=== PATIENT | male | born 1980 | race American Indian/Alaskan Native ===

== ENCOUNTER 2019-01-31 15:28 | Inpatient (IN) | payer OTHER ==
--- NOTE | 2019-01-31 15:36 | Emergency Department Report ---
Blank Doc - Documentation Documentation: This is a 38-year-old male that presents with swallowing glass particular. Elias flor stated was drinking and glass cut his tongue and started to have pain with swallowing. Denies any vomiting. This initial assessment/diagnostic orders/clinical plan/treatment(s) is/are subject to change based on patient's health status, clinical progression and re- assessment by fellow clinical providers in the ED. Further treatment and workup at subsequent clinical providers discretion. Patient/guardians urged not to elope from the ED as their condition may be serious if not clinically assessed and managed. Initial orders include: 1- Patient sent to MAIN for further evaluation and treatment 2- labs 3- Xray
[2019-01-31 16:01] LABS: Basophils # (Auto) 0.1 K/mm3 (0.0-0.1); Eosinophils # (Auto) 0.1 K/mm3 (0.0-0.4); Eosinophils % (Auto) 1.4 % (0.0-4.3); Hematocrit 41.9 % (35.5-45.6); Hemoglobin 14.2 gm/dl (11.8-15.2); Lymphocytes # (Auto) 2.3 K/mm3 (1.2-5.4); Lymphocytes % (Auto) 36.6 % (13.4-35.0); Mean Corpuscular HGB Conc 34 % (32-34); Mean Corpuscular Volume 83 fl (84-94); Monocytes # (Auto) 0.3 K/mm3 (0.0-0.8); Monocytes % (Auto) 5.3 % (0.0-7.3); Platelet Count 283 K/mm3 (140-440); Red Blood Count 5.04 M/mm3 (3.65-5.03); Red Cell Distribution Width 13.7 % (13.2-15.2)
[2019-01-31 16:11] LABS: BUN/Creatinine Ratio 10; Blood Urea Nitrogen 8 mg/dL (9-20); Hemolysis Index 21
--- NOTE | 2019-01-31 17:12 | Emergency Department Report ---
<BENITO IBRARA III - Last Filed: 02/01/19 00:27> ED General Adult HPI - General Chief complaint: Medical Clearance Stated complaint: SWALLOWED GLASS Time Seen by Provider: 01/31/19 15:34 - Related Data Home Medications Medication Instructions Recorded Confirmed Last Taken Ambien 10 mg PO HS 01/31/19 02/01/19 01/30/19 23:00 Effexor 150 mg PO DAILY 01/31/19 02/01/19 01/31/19 09:00 Insulin NPH Hum/Reg Insulin Hm 100 unit SQ PC 01/31/19 02/01/19 01/31/19 19:00 [Humulin 70-30 Vial] Keppra TAB 750 mg PO BID 01/31/19 02/01/19 01/31/19 09:00 Lamictal 100 mg PO BID 01/31/19 02/01/19 01/31/19 09:00 100 Lantus VIAL 15 units SQ 01/31/19 02/01/19 01/30/19 23:00 15 Allergies Allergy/AdvReac Type Severity Reaction Status Date / Time No Known Allergies Allergy Unverified 01/31/19 15:29 ED Past Medical Hx - Medications Home Medications: Home Medications Medication Instructions Recorded Confirmed Last Taken Type Ambien 10 mg PO HS 01/31/19 02/01/19 01/30/19 23:00 History Effexor 150 mg PO DAILY 01/31/19 02/01/19 01/31/19 09:00 History Insulin NPH Hum/Reg Insulin Hm 100 unit SQ PC 01/31/19 02/01/19 01/31/19 19:00 History [Humulin 70-30 Vial] Keppra TAB 750 mg PO BID 01/31/19 02/01/19 01/31/19 09:00 History Lamictal 100 mg PO BID 01/31/19 02/01/19 01/31/19 09:00 History 100 Lantus VIAL 15 units SQ 01/31/19 02/01/19 01/30/19 23:00 History 15 ED Course - Reevaluation(s) Reevaluation #1: Discussed all results with patient. Patient will be admitted to the hospitalist service. Patient agrees to plan of care. Hospitalist consultation for admission. Hospitalist to admit patient. Hospitalist to assume care patient. Patient having generalized abdominal tenderness. Patient is still complaining of pain in the abdomen and throat. 02/01/19 00:27 ED Medical Decision Making - Lab Data Result diagrams: 01/31/19 15:47 01/31/19 15:47 ED Disposition Clinical Impression: Throat pain Abdominal pain Qualifiers: Abdominal location: upper abdomen, unspecified Qualified Code(s): R10.10 - Upper abdominal pain, unspecified Ingestion of foreign body Qualifiers: Encounter type: initial encounter Qualified Code(s): T18.9XXA - Foreign body of alimentary tract, part unspecified, initial encounter Disposition: OP ADMIT IP TO THIS HOSP Condition: Stable <CIRA ARNDT - Last Filed: 02/01/19 02:45> ED General Adult HPI - General Source: patient Mode of arrival: Ambulatory Limitations: No Limitations - History of Present Illness Initial comments: Pt is a 38 yo male who presents to the ED with c/o pain in his throat that began today. He states he picked up a glass and did not notice it was broken at the top and he states the glass fell into his drink and he believes he swallowed it at 12 PM today. He states he cut his tongue in the process. The patient is able to tolerate his secretions and has drank water since then. He states initially he spit out some blood but has not seen any blood since then. PMHx of seizures, bladder injury with wire placement, and DM. he states he did not take his insulin today. ED Review of Systems ROS: Stated complaint: SWALLOWED GLASS Other details as noted in HPI Comment: All other systems reviewed and negative ED Past Medical Hx - Past Medical History Hx Diabetes: Yes Hx Seizures: Yes - Surgical History Additional Surgical History: jaw, bladder stimulator - Social History Smoking Status: Never Smoker Substance Use Type: None ED Physical Exam - General Limitations: No Limitations General appearance: alert, in no apparent distress - Head Head exam: Present: atraumatic, normocephalic - Eye Eye exam: Present: normal appearance, PERRL - ENT ENT exam: Present: normal orophraynx, mucous membranes moist, other (no signs of trauma to the posterior oropharynx or the tongue) - Respiratory Respiratory exam: Present: normal lung sounds bilaterally. Absent: respiratory distress, wheezes, rales, rhonchi, stridor, chest wall tenderness, accessory muscle use, decreased breath sounds, prolonged expiratory - Cardiovascular Cardiovascular Exam: Present: regular rate, normal rhythm, normal heart sounds. Absent: systolic murmur, diastolic murmur, rubs, gallop - GI/Abdominal GI/Abdominal exam: Present: soft, tenderness (mild epigastric), normal bowel sounds. Absent: distended, guarding, rebound, rigid - Neurological Exam Neurological exam: Present: alert, oriented X3 - Psychiatric Psychiatric exam: Present: normal affect, normal mood - Skin Skin exam: Present: warm, dry, intact ED Course Vital Signs 01/31/19 01/31/19 01/31/19 15:34 17:03 23:25 Temperature 98.0 F Pulse Rate 80 76 Respiratory 16 16 16 Rate Blood Pressure 138/93 O2 Sat by Pulse 98 99 Oximetry - Consultations Consultation #1: 01/31/19 20:[address] Ibarra who recommended ordering at CT abd pelvis and doctor chase fried consult GI. Consultation #2: 01/31/19 22:45 Spoke with Gautam Delong MD, radiologist who states that all glass is radiopaque and should be visualized if greater than 5 mm Consultation #3: 01/31/19 22:50 Dr. Ibarra spoke with Dr. Juancarlos Leone, GI who will consult on patient and will see patient in the AM. 01/31/19 22:56 Dr. Ibarra spoke with Dr. Sawyer who will accept and resume care of the patient and admit to observation. ED Medical Decision Making - Lab Data Result diagrams: 01/31/19 15:47 01/31/19 15:47 Lab Results 01/31/19 01/31/19 Range/Units 15:47 15:47 WBC 6.2 (4.5-11.0) K/mm3 RBC 5.04 H (3.65-5.03) M/mm3 Hgb 14.2 (11.8-15.2) gm/dl Hct 41.9 (35.5-45.6) % MCV 83 L (84-94) fl MCH 28 (28-32) pg MCHC 34 (32-34) % RDW 13.7 (13.2-15.2) % Plt Count 283 (140-440) K/mm3 Lymph % (Auto) 36.6 H (13.4-35.0) % Amador % (Auto) 5.3 (0.0-7.3) % Eos % (Auto) 1.4 (0.0-4.3) % Baso % (Auto) 1.0 (0.0-1.8) % Lymph # 2.3 (1.2-5.4) K/mm3 Amador # 0.3 (0.0-0.8) K/mm3 Eos # 0.1 (0.0-0.4) K/mm3 Baso # 0.1 (0.0-0.1) K/mm3 Seg Neutrophils % 55.7 (40.0-70.0) % Seg Neutrophils # 3.4 (1.8-7.7) K/mm3 Sodium 138 (137-145) mmol/L Potassium 4.0 (3.6-5.0) mmol/L Carbon Dioxide 24 (22-30) mmol/L BUN 8 L (9-20) mg/dL Creatinine 0.8 (0.8-1.5) mg/dL Estimated GFR > 60 ml/min BUN/Creatinine Ratio 10 % Glucose 316 H (75-100) mg/dL Calcium 9.0 (8.4-10.2) mg/dL - Radiology Data Radiology results: report reviewed PROCEDURE: XR ABD SERIES W CXR 1V HISTORY: sore throat r/o glass foreign body FINDINGS: Frontal view of the chest was acquired as well as supine and erect views of the abdomen. The heart is mildly large. There is no evidence of congestive heart failure. No foreign body is seen in the chest. In the abdomen, air is seen in nondistended loops of small bowel and large bowel. There is no bowel obstruction. Stool is seen throughout the colon without colonic dilation. The patient appears to be mildly constipated. No foreign body is seen. IMPRESSION: Cardiomegaly Mild constipation This document is electronically signed by Sony Hutton MD., Jan 31 2019 05:12:02 PM ET PROCEDURE: XR NECK SOFT TISSUE HISTORY: sore throat r/o glass foreign body FINDINGS: AP and lateral views of the neck soft tissues were acquired. On the lateral view there is a possible foreign body overlying the airway, between the epiglottis and larynx, 1.[address] is recommended. The prevertebral soft tissues are within normal limits. IMPRESSION: Possible foreign body. CT is recommended This document is electronically signed by Sony Hutton MD., Jan 31 2019 05:11:05 PM ET PROCEDURE: CT ABDOMEN PELVIS WO CON TECHNIQUE: Computerized axial tomography of the abdomen and pelvis was performed without intravenous contrast. This study is performed without intravascular contrast material and its sensitivity for abdominal and pelvic pathology, including neoplasms, inflammation, abscess, free fluid, thrombosis, arterial dissection and infarction, is reduced compared with a contrast enhanced study. CT DOSE LENGTH PRODUCT: 1218.6 mGycm HISTORY: concern for swallowed glass COMPARISONS: None . FINDINGS: There is diffuse fatty infiltration of liver. Spleen, pancreas and adrenal glands are within normal limits. Bilateral kidneys demonstrate normal density without calculi or hydronephrosis. Urinary bladder is partially filled with normal outlines. Aorta is of normal caliber. There is no free fluid or free air. Gallbladder is unremarkable. Small bowel loops are within normal limits. Moderate degree residual stool is noted. Appendix is normal. Vertebral height is normal. There is no evidence of any radiopaque foreign body. IMPRESSION: No acute intra-abdominal or pelvic pathology No radiopaque foreign body Fatty liver This document is electronically signed by Gautam Delong MD., Jan 31 2019 09:49:33 PM ET PROCEDURE: CT NECK WO CON TECHNIQUE: Computerized tomography of the soft tissue neck was performed without contrast material. This study is performed without intravascular contrast material and its sensitivity for pathology, including neoplasms, inflammation, abscess, free fluid, thrombosis, and arterial dissection, is reduced compared with a contrast enhanced study. CT DOSE LENGTH PRODUCT: 358.7 mGycm HISTORY: possible foreign body seen on XR of neck COMPARISONS: Radiograph 01/31/2019 . FINDINGS: Skull base: Visualized portions are normal . Paranasal sinuses: Visualized portions are normal . Nasopharynx: Normal . Oral cavity: Normal . Epiglottis/vallecula: Normal . Larynx/pyriform sinuses: Normal . Thyroid gland: Normal . Lymph nodes: None enlarged . Salivary glands: Normal . Upper thorax: Normal . IMPRESSION: No foreign body is identified. Density seen on radiograph is likely related to cartilage calcification This document is electronically signed by Kelly Malik MD., Jan 31 2019 08:26:13 PM ET - Medical Decision Making XR of the neck with possible foreign body. XR of the chest and abd with no acute process. CT of the neck with no acute process. CT of the abd/pelvis with no acute process. Spoke to radiologist who states that all glass is radioopaque and should be visualized unless under [address] case [address] Ibarra. Dr. Ibarra spoke with Dr. Juancarlos Leone, GI who will consult on patient, advised to admit, and will see patient in the morning. Dr. Sawyer, hospitalist will accept and resume care of pt and admit to the hospital. VSS. Labs with elevated glucose secondary to pt not taking his insulin, otherwise labs WNL. Critical care attestation.: If time is entered above; I have spent that time in minutes in the direct care of this critically ill patient, excluding procedure time. ED Disposition Is pt being admited?: Yes Does the pt Need Aspirin: No Time of Disposition: 22:56
[2019-01-31] MEDS ORDERED: MORPHINE IV ONE (19:57)
--- NOTE | 2019-01-31 20:28 | Cat Scan Report ---
PROCEDURE: CT NECK WO CON TECHNIQUE: Computerized tomography of the soft tissue neck was performed without contrast material. This study is performed without intravascular contrast material and its sensitivity for pathology, in cluding neoplasms, inflammation, abscess, free fluid, thrombosis, and arterial dissection, is reduced compared with a contrast enhanced study. CT DOSE LENGTH PRODUCT: 358.7 mGycm HISTORY: possible foreign body seen on XR of neck COMPARISONS: Radiograph 01/31/2019 . FINDINGS: Skull base: Visualized portions are normal . Paranasal sinuses: Visualized portions are normal . Nasopharynx: Normal . Oral cavity: Normal . Epiglottis/vallecula: Normal . Larynx/pyriform sinuses: Normal . Thyroid gland: Normal . Lymph nodes: None enlarged . Salivary glands: Normal . Upper thorax: Normal . IMPRESSION: No foreign body is identified. Density seen on radiograph is likely related to cartilage calcificatio n This document is electronically signed by Kelly Malik MD., Jan 31 2019 08:26:13 PM ET
--- NOTE | 2019-01-31 21:51 | Cat Scan Report ---
PROCEDURE: CT ABDOMEN PELVIS WO CON TECHNIQUE: Computerized axial tomography of the abdomen and pelvis was performed without intravenous contrast. This study is performed without intravascular contrast material and its sensitivity for ab dominal and pelvic pathology, including neoplasms, inflammation, abscess, free fluid, thrombosis, art erial dissection and infarction, is reduced compared with a contrast enhanced study. CT DOSE LENGTH PRODUCT: 1218.6 mGycm HISTORY: concern for swallowed glass COMPARISONS: None . FINDINGS: There is diffuse fatty infiltration of liver. Spleen, pancreas and adrenal glands are within normal l imits. Bilateral kidneys demonstrate normal density without calculi or hydronephrosis. Urinary bladde r is partially filled with normal outlines. Aorta is of normal caliber. There is no free fluid or joey e air. Gallbladder is unremarkable. Small bowel loops are within normal limits. Moderate degree resid ual stool is noted. Appendix is normal. Vertebral height is normal. There is no evidence of any radio paque foreign body. IMPRESSION: No acute intra-abdominal or pelvic pathology No radiopaque foreign body Fatty liver This document is electronically signed by Gautam Delong MD., Jan 31 2019 09:49:33 PM ET
[2019-01-31] MEDS ORDERED: TORADOL IV ONE (22:51)
[2019-01-31] MEDS ORDERED: TYLENOL PO PRN (23:25)
[2019-01-31] MEDS ORDERED: SODIUM CHLORIDE FLUSH SYRINGE 10 ML IV PRN (23:25)
[2019-01-31] MEDS ORDERED: MORPHINE IV PRN (23:25)
[2019-01-31] MEDS ORDERED: NACL 0.9% 1000 ML 1,000 ML IV SCH (23:45)
[2019-02-01] MEDS: ZOFRAN IV PRN ×2 (00:49→19:29)
[2019-02-01] MEDS ORDERED: MORPHINE ONE (00:51)
[2019-02-01] MEDS ORDERED: ZOFRAN ONE (00:52)
--- NOTE | 2019-02-01 01:12 | History and Physical Report ---
<KEELY STEELE - Last Filed: 02/01/19 01:21> History of Present Illness Date of examination: 01/31/19 Date of admission: 01/31/19 23:25 Chief complaint: Swallowed foreign body with complaints of neck and abdominal pain History of present illness: 38-year-old -M[place]ian male with history of seizure disorder, and dependent diabetes presents to [facility] ED with complaints of throat and abdominal pain after swallowing a foreign body. Patient states that he was drinking a glass of water and did not realize the glass was broken and the broken piece fell in water. Unknowingly he swallowed (what he believes to be ) a piece of glass, when drinking the water. He immediately began to experience sharp, stabbing throat pain followed by abdominal pain. He rates his pain 10/10. There are no aggravating factors and pain is relieved with pain medicine. He admits to spitting out blood tinged secretions. However he has not had any a dditional episodes of hemoptysis. Denies dramatic emesis, melena, nausea, vomiting, chest pain, or headache. Past History Past Medical History: diabetes, seizures, other Past Surgical History: Other (jaw surgery, sleep apnea surgery, bladder wires surgery) Social history: , lives with family Family history: no significant family history Medications and Allergies Allergies Allergy/AdvReac Type Severity Reaction Status Date / Time No Known Allergies Allergy Unverified 01/31/19 15:29 Home Medications Medication Instructions Recorded Confirmed Last Taken Type Ambien 10 mg PO HS 01/31/19 02/01/19 01/30/19 23:00 History Effexor 150 mg PO DAILY 01/31/19 02/01/19 01/31/19 09:00 History Insulin NPH Hum/Reg Insulin Hm 100 unit SQ PC 01/31/19 02/01/19 01/31/19 19:00 History [Humulin 70-30 Vial] Keppra TAB 750 mg PO BID 01/31/19 02/01/19 01/31/19 09:00 History Lamictal 100 mg PO BID 01/31/19 02/01/19 01/31/19 09:00 History 100 Lantus VIAL 15 units SQ HS 01/31/19 02/01/19 01/30/19 23:00 History 15 Active Meds: Active Medications Acetaminophen (Tylenol) 650 mg PO Q4H PRN PRN Reason: Pain MILD(1-3)/Fever >100.5/NICOLE Sodium Chloride (Nacl 0.9% 1000 Ml) 1,000 mls @ 100 mls/hr IV DIRECT BENY Morphine Sulfate (Morphine) 2 mg IV Q4H PRN PRN Reason: Pain, Moderate (4-6) Stop: 02/01/19 23:59 Last Admin: 02/01/19 00:49 Dose: 2 mg Documented by: Ondansetron HCl (Zofran) 4 mg IV Q8H PRN PRN Reason: Nausea And Vomiting Last Admin: 02/01/19 00:49 Dose: 4 mg Documented by: Sodium Chloride (Sodium Chloride Flush Syringe 10 Ml) 10 ml IV BID BENY Sodium Chloride (Sodium Chloride Flush Syringe 10 Ml) 10 ml IV PRN PRN PRN Reason: LINE FLUSH Review of Systems All systems: negative (reviewed and no additional remarkable complaints except as noted below) Ears, nose, mouth and throat: sore throat (throat pain) Respiratory: hemoptysis (1) Gastrointestinal: abdominal pain ( mild epigastric tenderness) Exam - Physical Exam Narrative exam: Physical exam General appearance: Present: No acute distress, well-nourished adult male - EENT Eyes: Present: PERRL, EOM intact ENT: hearing intact, normal dentition - Neck Neck: Present: supple, normal ROM - Respiratory Respiratory effort: Non-labored Respiratory: Clear throughout - Cardiovascular Heart rate: 76 (bpm) Rhythm: Sinus rhythm, regular Heart Sounds: Present: S1 & S2. Absent: rub, click - Extremities Extremities: no ischemia, pulses intact, - Peripheral Assessment Peripheral Pulses: within normal limits - Abdominal General gastrointestinal: soft, mild epicgastric tenderness, normal bowel sounds - Integumentary Integumentary: Present: warm, dry - Musculoskeletal Musculoskeletal: Able to move all extremities - Psychiatric Psychiatric: Appropriate for situation, cooperative - Constitutional Vitals: Temp Pulse Resp BP Pulse Ox 98.0 F 76 16 138/93 99 01/31/19 15:34 01/31/19 23:25 01/31/19 23:25 01/31/19 15:34 01/31/19 23:25 Results - Labs CBC & Chem 7: 01/31/19 15:47 01/31/19 15:47 Labs: Laboratory Last Values WBC 6.2 K/mm3 (4.5-11.0) 01/31/19 15:47 RBC 5.04 M/mm3 (3.65-5.03) H 01/31/19 15:47 Hgb 14.2 gm/dl (11.8-15.2) 01/31/19 15:47 Hct 41.9 % (35.5-45.6) 01/31/19 15:47 MCV 83 fl (84-94) L 01/31/19 15:47 MCH 28 pg (28-32) 01/31/19 15:47 MCHC 34 % (32-34) 01/31/19 15:47 RDW 13.7 % (13.2-15.2) 01/31/19 15:47 Plt Count 283 K/mm3 (140-440) 01/31/19 15:47 Lymph % (Auto) 36.6 % (13.4-35.0) H 01/31/19 15:47 [place] % (Auto) 5.3 % (0.0-7.3) 01/31/19 15:47 Eos % (Auto) 1.4 % (0.0-4.3) 01/31/19 15:47 Baso % (Auto) 1.0 % (0.0-1.8) 01/31/19 15:47 Lymph # 2.3 K/mm3 (1.2-5.4) 01/31/19 15:47 [place] # 0.3 K/mm3 (0.0-0.8) 01/31/19 15:47 Eos # 0.1 K/mm3 (0.0-0.4) 01/31/19 15:47 Baso # 0.1 K/mm3 (0.0-0.1) 01/31/19 15:47 Seg Neutrophils % 55.7 % (40.0-70.0) 01/31/19 15:47 Seg Neutrophils # 3.4 K/mm3 (1.8-7.7) 01/31/19 15:47 Sodium 138 mmol/L (137-145) 01/31/19 15:47 Potassium 4.0 mmol/L (3.6-5.0) 01/31/19 15:47 Carbon Dioxide 24 mmol/L (22-30) 01/31/19 15:47 BUN 8 mg/dL (9-20) L 01/31/19 15:47 0.8 mg/dL (0.8-1.5) 01/31/19 15:47 Estimated GFR > 60 ml/min 01/31/19 15:47 10 % 01/31/19 15:47 Glucose 316 mg/dL (75-100) H 01/31/19 15:47 Calcium 9.0 mg/dL (8.4-10.2) 01/31/19 15:47 Short CBC 01/31/19 Range/Units 15:47 WBC 6.2 (4.5-11.0) K/mm3 Hgb 14.2 (11.8-15.2) gm/dl Hct 41.9 (35.5-45.6) % Plt Count 283 (140-440) K/mm3 BMP 01/31/19 15:47 Sodium 138 Potassium 4.0 Carbon Dioxide 24 BUN 8 L Creatinine 0.8 Glucose 316 H Calcium 9.0 - Imaging and Cardiology Chest x-ray: report reviewed (No foreign body is seen. ), image reviewed Abdominal x-ray: report reviewed, image reviewed (No foreign body is seen. ) CT scan - abdomen: report reviewed (No acute intra-abdominal or pelvic pathology. No radiopaque foreign body. Fatty liver ), image reviewed Imaging and Cardiology: XR Neck: On the lateral view there is a possible foreign body overlying the airway, between the epiglottis and larynx, 1.[address] Neck: No foreign body is identified. Density seen on radiograph is likely related to cartilage calcification Assessment and Plan Assessment and plan: 38-year-old -Mauritanian male with history of seizure disorder, and dependent diabetes presents to [facility] ED with complaints of throat and abdominal pain after swallowing a foreign body. No foreign body seen on CT abdomen and pelvis, CT neck, chest x-ray, or abdominal x-ray. Patient continues to complain of severe abdominal and neck pain. H/H WNL no s/s of active bleeding. Dr. Leone was consulted and plans on seeing patient in the morning for further evaluation. Will admitted as OBS to Medical floor. Foreign body consumption Acute abdominal and neck pain IDDM History of seizures Plan: Continue Supportive care Pain management Monitor H/H Monitor for s/s of active bleeding Nothing by mouth IVF POC BG monitoring SSI coverage Resume anticonvulsant medications: Keppra and Lamictal DVT PPX on SCD's will hold off of AC for now Advance Directives: No VTE prophylaxis?: Mechanical Plan of care discussed with patient/family: Yes <KERALOCO Meri - Last Filed: 02/02/19 07:11> History of Present Illness Date of admission: 02/01/19 16:38 Medications and Allergies Active Meds: Active Medications Acetaminophen (Tylenol) 650 mg PO Q4H PRN PRN Reason: Pain MILD(1-3)/Fever >100.5/NICOLE Dextrose (D50w (25gm) Syringe) 50 ml IV PRN PRN PRN Reason: Hypoglycemia Insulin Glargine (Lantus) 15 units SUB-Q QHS [facility] Last Admin: 02/01/19 22:59 Dose: 15 units Documented by: Insulin Human Lispro (Humalog) 0 unit SUB-Q Q6HR [facility]; Protocol Last Admin: 02/02/19 06:48 Dose: 3 unit Documented by: Lamotrigine (Lamictal) 100 mg PO BID [facility] Last Admin: 02/01/19 21:33 Dose: 100 mg Documented by: Levetiracetam (Keppra) 750 mg PO BID [facility] Last Admin: 02/01/19 21:32 Dose: 750 mg Documented by: Ondansetron HCl (Zofran) 4 mg IV Q8H PRN PRN Reason: Nausea And Vomiting Last Admin: 02/01/19 19:29 Dose: 4 mg Documented by: Oxycodone/Acetaminophen (Percocet 5/325) 1 tab PO Q6H PRN PRN Reason: Pain, Moderate (4-6) Last Admin: 02/02/19 04:49 Dose: 1 tab Documented by: Sodium Chloride (Sodium Chloride Flush Syringe 10 Ml) 10 ml IV BID [facility] Last Admin: 02/01/19 21:34 Dose: 10 ml Documented by: Sodium Chloride (Sodium Chloride Flush Syringe 10 Ml) 10 ml IV PRN PRN PRN Reason: LINE FLUSH Venlafaxine HCl (Effexor Xr) 150 mg PO DAILY [facility] Last Admin: 02/01/19 10:34 Dose: 150 mg Documented by: Exam - Constitutional Vitals: Temp Pulse Resp BP Pulse Ox 98.2 F 69 18 126/78 98 02/02/19 06:14 02/02/19 06:14 02/02/19 06:14 02/02/19 06:14 02/02/19 06:14 Results - Labs CBC & Chem 7: 02/01/19 14:44 02/01/19 05:46 Labs: Laboratory Last Values WBC 6.3 K/mm3 (4.5-11.0) 02/01/19 05:46 RBC 4.81 M/mm3 (3.65-5.03) 02/01/19 05:46 Hgb 13.9 gm/dl (11.8-15.2) 02/01/19 14:44 Hct 42.4 % (35.5-45.6) 02/01/19 14:44 MCV 84 fl (84-94) 02/01/19 05:46 MCH 29 pg (28-32) 02/01/19 05:46 MCHC 34 % (32-34) 02/01/19 05:46 RDW 13.5 % (13.2-15.2) 02/01/19 05:46 Plt Count 285 K/mm3 (140-440) 02/01/19 05:46 Lymph % (Auto) 42.9 % (13.4-35.0) H 02/01/19 05:46 [place] % (Auto) 5.9 % (0.0-7.3) 02/01/19 05:46 Eos % (Auto) 1.6 % (0.0-4.3) 02/01/19 05:46 Baso % (Auto) 0.6 % (0.0-1.8) 02/01/19 05:46 Lymph # 2.7 K/mm3 (1.2-5.4) 02/01/19 05:46 [place] # 0.4 K/mm3 (0.0-0.8) 02/01/19 05:46 Eos # 0.1 K/mm3 (0.0-0.4) 02/01/19 05:46 Baso # 0.0 K/mm3 (0.0-0.1) 02/01/19 05:46 Seg Neutrophils % 49.0 % (40.0-70.0) 02/01/19 05:46 Seg Neutrophils # 3.1 K/mm3 (1.8-7.7) 02/01/19 05:46 Sodium 140 mmol/L (137-145) 02/01/19 05:46 Potassium 3.9 mmol/L (3.6-5.0) 02/01/19 05:46 Chloride 101.1 mmol/L (98-107) 02/01/19 05:46 Carbon Dioxide 29 mmol/L (22-30) 02/01/19 05:46 14 mmol/L 02/01/19 05:46 BUN 11 mg/dL (9-20) 02/01/19 05:46 0.7 mg/dL (0.8-1.5) L 02/01/19 05:46 Estimated GFR > 60 ml/min 02/01/19 05:46 16 % 02/01/19 05:46 Glucose 241 mg/dL (75-100) H 02/01/19 05:46 POC Glucose 219 (70-105) H 02/02/19 06:22 11.2 % (4-6) H 02/01/19 01:56 Calcium 8.6 mg/dL (8.4-10.2) 02/01/19 05:46 Assessment and Plan Assessment and plan: I personally discussed the patient with the FUNERAL DIRECTOR AND EMBALMER-C. I agree with the above assessment and plan
[2019-02-01] MEDS ORDERED: D50W (25GM) Syringe IV PRN (01:16)
[2019-02-01] MEDS: KEPPRA PO SCH ×3 (02:06→21:32)
[2019-02-01] MEDS: LaMICtal PO SCH ×3 (02:07→21:33)
[2019-02-01] MEDS: DILAUDID IV PRN ×6 (03:43→23:37)
[2019-02-01 06:16] LABS: Basophils % (Auto) 0.6 % (0.0-1.8); Eosinophils # (Auto) 0.1 K/mm3 (0.0-0.4); Eosinophils % (Auto) 1.6 % (0.0-4.3); Hemoglobin 13.8 gm/dl (11.8-15.2); Lymphocytes # (Auto) 2.7 K/mm3 (1.2-5.4); Lymphocytes % (Auto) 42.9 % (13.4-35.0); Monocytes # (Auto) 0.4 K/mm3 (0.0-0.8); Monocytes % (Auto) 5.9 % (0.0-7.3)
[2019-02-01 06:21] LABS: Hematocrit 40.4 % (35.5-45.6); Mean Corpuscular HGB Conc 34 % (32-34); Mean Corpuscular Volume 84 fl (84-94); Platelet Count 285 K/mm3 (140-440); Red Blood Count 4.81 M/mm3 (3.65-5.03); Red Cell Distribution Width 13.5 % (13.2-15.2)
[2019-02-01] MEDS: HumaLOG SUB-Q SCH ×3 (06:23→17:46)
[2019-02-01 06:27] LABS: BUN/Creatinine Ratio 16; Blood Urea Nitrogen 11 mg/dL (9-20); Calcium 8.6 mg/dL (8.4-10.2); Hemolysis Index 6
[2019-02-01] MEDS ORDERED: LANTUS SUB-Q ONE (09:00)
[2019-02-01] MEDS: EFFEXOR XR PO SCH (10:34)
[2019-02-01] MEDS: SODIUM CHLORIDE FLUSH SYRINGE 10 ML IV SCH ×2 (10:35→21:34)
--- NOTE | 2019-02-01 14:40 | Progress Note ---
Assessment and Plan Assessment and plan: Foreign body ingestion - CT revealed no foreign body Acute abdominal and neck pain - resolved IDDM - SSI and basal insulin, Accu-Chek, ADA diet adjust insulin as needed History of seizures - continue home medications Rectal bleed - GI was consulted and if no further GI bleed they recommend to DC - H/H stable DVT prophylaxis - SCDs Disposition; continue inpatient care. If stable Dc tomorrow. History Interval history: Patient was seen and evaluated at the bedside, patient was complaining of an episode of rectal bleeding. Hospitalist Physical - Physical exam Narrative exam: Not in cardiopulmonary distress. The patient appeared well nourished and normally developed. Vital signs as documented. Head exam is unremarkable. No scleral icterus . Neck is without jugular venous distension, thyromegaly, or carotid bruits. Lungs are clear to auscultation. Cardiac exam reveals regular rate and Rhythm. First and second heart sounds normal. No murmurs, rubs or gallops. Abdominal exam reveals normal bowel sounds, no masses, no organomegaly and no aortic enlargement. Extremities are nonedematous and both femoral and pedal pulses are normal. 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 No focal weakness. - Constitutional Vitals: Temp Pulse Resp BP Pulse Ox 98.7 F 74 20 121/78 97 02/01/19 11:23 02/01/19 11:23 02/01/19 11:23 02/01/19 11:23 02/01/19 11:23 Results - Labs CBC & Chem 7: 02/02/19 07:16 02/02/19 07:16 Labs: Laboratory Last Values WBC 6.3 K/mm3 (4.5-11.0) 02/01/19 05:46 RBC 4.81 M/mm3 (3.65-5.03) 02/01/19 05:46 Hgb 13.8 gm/dl (11.8-15.2) 02/01/19 05:46 Hct 40.4 % (35.5-45.6) 02/01/19 05:46 MCV 84 fl (84-94) 02/01/19 05:46 MCH 29 pg (28-32) 02/01/19 05:46 MCHC 34 % (32-34) 02/01/19 05:46 RDW 13.5 % (13.2-15.2) 02/01/19 05:46 Plt Count 285 K/mm3 (140-440) 02/01/19 05:46 Lymph % (Auto) 42.9 % (13.4-35.0) H 02/01/19 05:46 [place] % (Auto) 5.9 % (0.0-7.3) 02/01/19 05:46 Eos % (Auto) 1.6 % (0.0-4.3) 02/01/19 05:46 Baso % (Auto) 0.6 % (0.0-1.8) 02/01/19 05:46 Lymph # 2.7 K/mm3 (1.2-5.4) 02/01/19 05:46 [place] # 0.4 K/mm3 (0.0-0.8) 02/01/19 05:46 Eos # 0.1 K/mm3 (0.0-0.4) 02/01/19 05:46 Baso # 0.0 K/mm3 (0.0-0.1) 02/01/19 05:46 Seg Neutrophils % 49.0 % (40.0-70.0) 02/01/19 05:46 Seg Neutrophils # 3.1 K/mm3 (1.8-7.7) 02/01/19 05:46 Sodium 140 mmol/L (137-145) 02/01/19 05:46 Potassium 3.9 mmol/L (3.6-5.0) 02/01/19 05:46 Chloride 101.1 mmol/L (98-107) 02/01/19 05:46 Carbon Dioxide 29 mmol/L (22-30) 02/01/19 05:46 14 mmol/L 02/01/19 05:46 BUN 11 mg/dL (9-20) 02/01/19 05:46 0.7 mg/dL (0.8-1.5) L 02/01/19 05:46 Estimated GFR > 60 ml/min 02/01/19 05:46 16 % 02/01/19 05:46 Glucose 241 mg/dL (75-100) H 02/01/19 05:46 POC Glucose 246 (70-105) H 02/01/19 11:12 11.2 % (4-6) H 02/01/19 01:56 Calcium 8.6 mg/dL (8.4-10.2) 02/01/19 05:46 Active Medications - Current Medications Current Medications: Generic Name Dose Route Start Last Admin Trade Name Freq PRN Reason Stop Dose Admin Acetaminophen 650 mg 01/31/19 23:25 Tylenol PO Q4H PRN Pain MILD(1-3)/Fever >100.5/NICOLE Dextrose 50 ml 02/01/19 01:16 D50w (25gm) Syringe IV PRN PRN Hypoglycemia Hydromorphone HCl 0.5 mg 02/01/19 01:37 02/01/19 12:44 Dilaudid IV 02/01/19 23:59 0.5 mg Q3H PRN Administration Pain , Severe (7-10) Insulin Glargine 15 units 02/01/19 22:00 Lantus SUB-Q QHS BENY Insulin Human Lispro 0 unit 02/01/19 06:00 02/01/19 11:30 Humalog SUB-Q 3 unit Q6HR BENY Administration Protocol Lamotrigine 100 mg 02/01/19 01:15 02/01/19 10:34 Lamictal PO 100 mg BID BENY Administration Levetiracetam 750 mg 02/01/19 01:15 02/01/19 10:34 Keppra PO 750 mg BID BENY Administration Morphine Sulfate 2 mg 01/31/19 23:25 02/01/19 00:49 Morphine IV 02/01/19 23:59 2 mg Q4H PRN Administration Pain, Moderate (4-6) Ondansetron HCl 4 mg 01/31/19 23:25 02/01/19 00:49 Zofran IV 4 mg Q8H PRN Administration Nausea And Vomiting Sodium Chloride 10 ml 02/01/19 10:00 02/01/19 10:35 Sodium Chloride Flush Syringe 10 Ml IV 10 ml BID BENY Administration Sodium Chloride 10 ml 01/31/19 23:25 Sodium Chloride Flush Syringe 10 Ml IV PRN PRN LINE FLUSH Venlafaxine HCl 150 mg 02/01/19 10:00 02/01/19 10:34 Effexor Xr PO 150 mg DAILY BENY Administration
[2019-02-01 15:10] LABS: Hematocrit 42.4 % (35.5-45.6); Hemoglobin 13.9 gm/dl (11.8-15.2)
[2019-02-01] MEDS ORDERED: LANTUS SUB-Q SCH (22:00)
[2019-02-02] MEDS: HumaLOG SUB-Q SCH ×2 (01:59→06:48)
[2019-02-02] MEDS: PERCOCET 5/325 PO PRN ×2 (04:49→10:11)
--- NOTE | 2019-02-02 05:34 | Consultation ---
REFERRING PHYSICIAN: Khadar Sharp MD INDICATION: 1. Abdominal pain. 2. Rectal bleeding. 3. Foreign body. HISTORY OF PRESENT ILLNESS: The patient is a 38-year-old black male with history of diabetes, presents for throat and abdominal pain. The patient reports that he was drinking a glass of water and felt that he inadvertently swallowed a piece of broken glass. The patient reports it was at that time, he has had some problems with swallowing, epigastric pain and also then started to develop some upper mid abdominal pain. The patient denied any lower GI symptoms at that time including diarrhea, constipation or rectal bleeding. Denies any nausea or vomiting. The patient subsequently came to the Emergency Room where he had a CT scan and a KUB performed, which were negative for foreign body, but the patient was admitted for observation. During the day and overnight, the patient reports he had a single bout of bloody blood per rectum, which made him concerned. Denies any history of rectal bleeding in the past. Denies any weight loss. No other specific complaints. PAST MEDICAL HISTORY: 1. Diabetes. 2. Seizure disorder. PAST SURGICAL HISTORY: Jaw surgery, bladder surgery. ALLERGIES: No known drug allergies. HOME MEDICATIONS: Reviewed and updated in chart. SOCIAL HISTORY: Denies alcohol, tobacco or drug abuse. FAMILY HISTORY: Negative for colon cancer or liver disease. REVIEW OF SYSTEMS: GENERAL: Reports mild weakness. HEENT: No visual complaints or tinnitus. PULMONARY: No shortness of breath. No cough. No chest pain. GASTROINTESTINAL: Reports mild abdominal pain. All points of 13-point review of systems otherwise negative. PHYSICAL EXAMINATION: VITAL SIGNS: Temperature of 98.7, pulse 74, respirations 20, blood pressure 121/78. GENERAL: Fairly nourished black male in no acute distress. HEENT: Pupils are equal, round, reactive. PULMONARY: Clear to auscultation bilaterally. CARDIOVASCULAR: Regular rhythm. Normal S1, S2. ABDOMEN: Soft. SKIN: No obvious rashes. LABORATORY DATA: Pertinent for white count of 6.3, hemoglobin and hematocrit of 13.8 and 40.4, platelet count of 285. Chem-7 within normal limits. LFTs within normal limits. KUB negative for foreign body. CT scan of the abdomen and pelvis with contrast negative for foreign body. ASSESSMENT AND PLAN: A 38-year-old male who presents after feeling he swallowed a piece of glass with negative KUB and CT. The patient does report overnight having some upper epigastric pain and then later in the evening some bright red blood per rectum, which he says he never had before. The patient's concern would rather be evaluated a little further. Management is noted below. PLAN: 1. We will start clear liquid diet, advance to soft as tolerated. 2. Follow labs. 3. If repeat rectal bleeding, we would then proceed with colonoscopy and possible endoscopy. 4. If stable in a.m. and no problems, okay to discharge from GI standpoint. JOB# [id number] [facility]
[2019-02-02 06:21] VITALS: BP 126/78
[2019-02-02 07:38] LABS: Basophils % (Auto) 0.8 % (0.0-1.8); Eosinophils # (Auto) 0.1 K/mm3 (0.0-0.4); Eosinophils % (Auto) 2.6 % (0.0-4.3); Hematocrit 42.5 % (35.5-45.6); Hemoglobin 13.9 gm/dl (11.8-15.2); Lymphocytes # (Auto) 1.6 K/mm3 (1.2-5.4); Lymphocytes % (Auto) 33.4 % (13.4-35.0); Mean Corpuscular HGB Conc 33 % (32-34); Mean Corpuscular Volume 84 fl (84-94); Monocytes # (Auto) 0.3 K/mm3 (0.0-0.8); Monocytes % (Auto) 7.1 % (0.0-7.3); Platelet Count 279 K/mm3 (140-440); Red Blood Count 5.04 M/mm3 (3.65-5.03); Red Cell Distribution Width 13.7 % (13.2-15.2)
[2019-02-02 08:04] LABS: BUN/Creatinine Ratio 14; Blood Urea Nitrogen 11 mg/dL (9-20); Calcium 8.7 mg/dL (8.4-10.2); Hemolysis Index 6
--- NOTE | 2019-02-02 08:46 | Discharge Summary ---
Providers - Providers Date of Admission: 02/01/19 16:38 Attending physician: GRACY LOPEZ MD 01/31/19 22:52 Consult to Physician [CONS] Routine Comment: Dr. Carrizales spoke with Dr. Tavarez @ 2054 Consulting Provider: ELISSA TAVAREZ Physician Instructions: Reason For Exam: poss swallowed glas, throat pain. abd pain Hospitalization Reason for admission: Suspected foreihn body ingestion Condition: Stable Hospital course: 38-year-old -Japanese male with history of seizure disorder, and dependent diabetes presents to [facility] ED with complaints of throat and abdominal pain after swallowing a foreign body. Patient states that he was drinking a glass of water and did not realize the glass was broken and the broken piece fell in water. Unknowingly he swallowed (what he believes to be ) a piece of glass, when drinking the water. He immediately began to experience sharp, stabbing throat pain followed by abdominal pain. He rates his pain 10/10. There are no aggravating factors and pain is relieved with pain medicine. He admits to spitting out blood tinged secretions. However he has not had any additional episodes of hemoptysis. patient was admitted and CT of the neck and abdomen was done and didn't reveal foreign body. Patient was complaining an episode of rectal bleeding and GI evaluated the patient and cleared for discharge. patient didn't have any other episode of GI bleed. H/H was stable. Abdominal pain subsided and discharged home. Disposition: - TO HOME OR SELFCARE Time spent for discharge: 32 minutes - Discharge Diagnoses (1) Abdominal pain Status: Acute Qualifiers: Abdominal location: upper abdomen, unspecified Qualified Code(s): R10.10 - Upper abdominal pain, unspecified (2) Ingestion of foreign body Status: Acute Qualifiers: Encounter type: initial encounter Qualified Code(s): T18.9XXA - Foreign body of alimentary tract, part unspecified, initial encounter (3) Throat pain Status: Acute Core Measure Documentation - Palliative Care Palliative Care/ Comfort Measures: Not Applicable - Core Measures Any of the following diagnoses?: none Exam - Physical Exam Narrative exam: Not in cardiopulmonary distress. The patient appeared well nourished and normally developed. Vital signs as documented. Head exam is unremarkable. No scleral icterus . Neck is without jugular venous distension, thyromegaly, or carotid bruits. Lungs are clear to auscultation. Cardiac exam reveals regular rate and Rhythm. First and second heart sounds normal. No murmurs, rubs or gallops. Abdominal exam reveals normal bowel sounds, no masses, no organomegaly and no aortic enlargement. Extremities are nonedematous and both femoral and pedal pulses are normal. 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 No focal weakness. - Constitutional Vitals: Temp Pulse Resp BP Pulse Ox 98.2 F 69 18 126/78 98 02/02/19 06:14 02/02/19 06:14 02/02/19 06:14 02/02/19 06:14 02/02/19 06:14 Plan Activity: no restrictions Weight Bearing Status: Full Weight Bearing Diet: regular Follow up with: [facility] [Other] - 3-5 Days
[2019-02-02] MEDS: KEPPRA PO SCH (10:10)
[2019-02-02] MEDS: EFFEXOR XR PO SCH (10:12)
[2019-02-02] MEDS: SODIUM CHLORIDE FLUSH SYRINGE 10 ML IV SCH (10:13)
[2019-02-02] MEDS: LaMICtal PO SCH (10:13)
--- NOTE | 2019-02-02 18:00 | Gastroenterology Progress Note ---
Assessment and Plan GI: no problems overnight - diet as tolerated - ok to d/c - will sign off, call if needed Subjective Date of service: 02/02/19 Interval history: - no complaints overnight Objective - Constitutional Vitals: Temp Pulse Resp BP Pulse Ox 98.2 F 69 18 126/78 98 02/02/19 06:14 02/02/19 06:14 02/02/19 06:14 02/02/19 06:14 02/02/19 06:14 General appearance: no acute distress - EENT Eyes: PERRL - Respiratory Respiratory: bilateral: CTA - Cardiovascular Rhythm: regular Heart Sounds: Present: S1 & S2 - Gastrointestinal General gastrointestinal: Present: soft, non-tender, non-distended - Labs CBC & Chem 7: 02/02/19 07:16 02/02/19 07:16 Labs: Laboratory Results - last 24 hr 02/01/19 02/02/19 02/02/19 17:47 01:32 06:22 WBC RBC Hgb Hct MCV MCH MCHC RDW Plt Count Lymph % (Auto) [place] % (Auto) Eos % (Auto) Baso % (Auto) Lymph # Kerr # Eos # Baso # Seg Neutrophils % Seg Neutrophils # Sodium Potassium Chloride Carbon Dioxide Anion Gap BUN Creatinine Estimated GFR BUN/Creatinine Ratio Glucose POC Glucose 122 H 221 H 219 H Calcium 02/02/19 02/02/19 02/02/19 07:16 07:16 07:55 WBC 4.8 RBC 5.04 H Hgb 13.9 Hct 42.5 MCV 84 MCH 28 MCHC 33 RDW 13.7 Plt Count 279 Lymph % (Auto) 33.4 [place] % (Auto) 7.1 Eos % (Auto) 2.6 Baso % (Auto) 0.8 Lymph # 1.6 Kerr # 0.3 Eos # 0.1 Baso # 0.0 Seg Neutrophils % 56.1 Seg Neutrophils # 2.7 Sodium 140 Potassium 4.1 Chloride 102.0 Carbon Dioxide 27 Anion Gap 15 BUN 11 Creatinine 0.8 Estimated GFR > 60 BUN/Creatinine Ratio 14 Glucose 225 H POC Glucose 202 H Calcium 8.7
== END 2019-02-02 10:20 | disposition home or self-care (01) | DRG 395 ==
LOC: ED 15:28 → 3A 23:25 → OBSVTOIN 02-01 16:38
PROVIDERS: ADMIT Internal Medicine; ATTEND Internal Medicine
DX: T18.9XXA Foreign body of alimentary tract, part unspecified, initial encounter (principal); G40.909 Epilepsy, unspecified, not intractable, without status epilepticus; E11.9 Type 2 diabetes mellitus without complications; Y93.89 Activity, other specified; Y92.89 Other specified places as the place of occurrence of the external cause; Y99.8 Other external cause status; Z79.4 Long term (current) use of insulin; Z79.899 Other long term (current) drug therapy
CPT/HCPCS: 36415; 70360; 70490; 74022; 74176; 80048; 82962; 83036; 85014; 85018; 85025; G0378; J1170; J1815; J1885; J2270; J2405

== ENCOUNTER 2019-06-11 09:19 | Emergency (ER) | payer OTHER ==
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
[2019-06-11 11:17] VITALS: BP 125/74
== END 2019-06-11 11:15 | disposition home or self-care (01) ==
LOC: ED 09:19
DX: F07.81 Postconcussional syndrome (principal); E11.9 Type 2 diabetes mellitus without complications; Z79.899 Other long term (current) drug therapy
CPT/HCPCS: 70450